=== PATIENT | male | born 1960 | race Caucasian/White ===

== ENCOUNTER → 2016-10-14 | Outpatient (CLI) | payer OTHER ==
[~2016-10-14] MED LIST: ATOR10TA82 PO; BUSP-8 PO; BUSP15TA70 PO; LORA-741 PO; OXYC-57 PO; OXYC1TAB3 PO; PRLSR20 PO; RXC5 PO; SERT-234 PO; SERT1TAB71 PO
[2016-10-14 13:23] LABS: ESTIMATED AVERAGE GLUCOSE 120 mg/dl; HA1C FLAG Normal (Normal)
[2016-10-14 18:04] LABS: CALCIUM 9.7 mg/dl (8.5-10.1)
[2016-10-14 18:07] LABS: ALT/SGPT 45 U/L (12-78); BLOOD UREA NITROGEN 17 mg/dl (7-18); BUN/CREATININE RATIO 18.8 (10-20); CARBON DIOXIDE 27 mmol/L (21-32); CHLORIDE 105 mmol/L (98-107); CHOLESTEROL 304 mg/dl (0-200); CREATININE 0.88 mg/dl (0.60-1.40); GLUCOSE 113 mg/dl (70-99); POTASSIUM 4.6 mmol/L (3.5-5.1); SODIUM 140 mmol/L (136-145); TRIGLYCERIDES 175 mg/dl (0-150); VERY LOW DENSITY LIPOPROT CALC 35 mg/dl
[2016-10-14 18:10] LABS: ALB/GLOB RATIO 1.2 (0.9-2); ALKALINE PHOSPHATASE 94 U/L (45-117); AST/SGOT 26 U/L (15-37); HDL CHOLESTEROL 61 mg/dl; LDL CHOLESTEROL CALCULATED 208 mg/dl
== END | disposition home or self-care (01) ==
LOC: C.LABPVFM 11:07
PROVIDERS: ATTEND Neuromusculoskeletal Medicine & OMM
DX: Z00.00 Encounter for general adult medical examination without abnormal findings (principal)

== ENCOUNTER → 2016-10-31 | Outpatient (CLI) | payer OTHER ==
[2016-10-31 17:28] LABS: BASO % 0.4 %; BASO ABS # 0.03 K/uL (0-0.2); COMPLETE YES; EOS % 3.2 %; HEMATOCRIT 41.6 % (42-52); IG% 0.3 %; LYMPH % 23.5 %; LYMPH ABS # 1.71 K/uL (1.2-3.4); MEAN CORPUSCULAR HEMOGLOBIN 30.9 pg (25-34); MEAN CORPUSCULAR HGB CONC 33.9 g/dl (32-36); MEAN PLATELET VOLUME 9.2 fL (7.4-10.4); MONO % 13.6 %; PLATELET COUNT 259 K/uL (130-400); RED BLOOD COUNT 4.57 M/uL (4.7-6.1); WHITE BLOOD COUNT 7.29 K/uL (4.8-10.8)
[2016-10-31 17:55] LABS: BLOOD UREA NITROGEN 21 mg/dl (7-18); BUN/CREATININE RATIO 22.5 (10-20); CALCIUM 9.3 mg/dl (8.5-10.1); CARBON DIOXIDE 30 mmol/L (21-32); CHLORIDE 106 mmol/L (98-107); CREATININE 0.94 mg/dl (0.60-1.40); GLUCOSE 88 mg/dl (70-99); POTASSIUM 4.5 mmol/L (3.5-5.1); SODIUM 141 mmol/L (136-145)
== END | disposition home or self-care (01) ==
LOC: C.LABPVFM 14:26
PROVIDERS: ATTEND Nurse Practitioner
DX: R10.811 Right upper quadrant abdominal tenderness (principal); R10.13 Epigastric pain; K92.1 Melena

== ENCOUNTER → 2016-11-05 | Outpatient (CLI) | payer OTHER ==
--- NOTE | 2016-11-05 14:49 | DIAGNOSTIC IMAGING REPORT ---
Limited abdominal ultrasound ABDOMEN FOR HERNIA CLINICAL HISTORY: R/O UMBILICAL HERNIA hernia TECHNIQUE: Ultrasound COMPARISON STUDY: None FINDINGS: Findings consistent with a fat-containing umbilical hernia. This is partially reducible. There is no evidence of bowel containment. Maximum transverse dimension is approximately 1 cm. IMPRESSION: Fat-containing partially reducible periumbilical hernia. Electronically signed by: Wesley Samuels M.D. 11/05/2016 2:47 PM Dictated Date/Time: 11/05/2016 2:46 PM
== END | disposition home or self-care (01) ==
LOC: C.ULTR 14:10
PROVIDERS: ATTEND Nurse Practitioner
DX: K42.9 Umbilical hernia without obstruction or gangrene (principal); R19.7 Diarrhea, unspecified

== ENCOUNTER → 2016-11-27 | Outpatient (CLI) | payer OTHER ==
[~2016-11-27] MED LIST changes: -ATOR10TA82 PO; +ATOR10TA88 PO
--- NOTE | 2016-11-27 10:56 | DIAGNOSTIC IMAGING REPORT ---
[facility] ultrasound GALLBLADDER-ABD LIMITED CLINICAL HISTORY: R10.811 Abdominal tenderness, RUQ (right upper quadrant)R14.0 Bbl pain. Nausea. TECHNIQUE: Ultrasound COMPARISON STUDY: None FINDINGS: Normal gallbladder. Common bile duct 5 mm. Fatty infiltration of liver. Pancreas and right kidney are unremarkable. IMPRESSION: Fatty infiltration of liver. Otherwise negative study. Electronically signed by: Wesley Samuels M.D. 11/27/2016 10:54 AM Dictated Date/Time: 11/27/2016 10:53 AM
--- NOTE | 2016-11-27 10:59 | DIAGNOSTIC IMAGING REPORT ---
CHEST 2 VIEWS ROUTINE CLINICAL HISTORY: K42.9 Umbilical hernia PRE-OP [id number] preoperative evaluation COMPARISON STUDY: 07/11/2014 FINDINGS: The bones soft tissues and hemidiaphragms are normal. The cardiomediastinal silhouette is normal. The lungs are clear. The pulmonary vasculature is normal. IMPRESSION: Negative chest. Electronically signed by: Wesley Samuels M.D. 11/27/2016 10:58 AM Dictated Date/Time: 11/27/2016 10:57 AM
== END | disposition home or self-care (01) ==
LOC: C.ULTR 10:26
PROVIDERS: ATTEND Surgery
DX: R10.811 Right upper quadrant abdominal tenderness (principal); R14.0 Abdominal distension (gaseous); K76.0 Fatty (change of) liver, not elsewhere classified

== ENCOUNTER 2016-12-12 04:59 | Day surgery (SDC) | payer OTHER ==
[2016-12-10 15:38] VITALS: BMI 32.0
[~2016-12-12] VITALS: Ht 170.2 cm; Wt 93.0 kg
[~2016-12-12 04:59] MED LIST changes: -BUSP-8 PO; -LORA-741 PO; -OXYC-57 PO; -OXYC1TAB3 PO; -RXC5 PO; -SERT-234 PO
[2016-12-12 05:40] VITALS: BP 140/80; PULSE 61; TEMP 37.1; O2SAT 96; Ht 170.2 cm; Wt 93.0 kg
[2016-12-12] MEDS ORDERED: LACTATED RINGER'S 1000ML 1,000 ML IV SCH ×2 (06:00→07:46)
--- NOTE | 2016-12-12 06:31 | History & Physical Bridge Note ---
H&P Re-Evaluation Bridge Note: I have examined the patient, reviewed the History & Physical and in the interval since the performance of the History & Physical I have noted the following changes of clinical significance: No changes noted at bedside. again told them ultrasound gallbladder fine, hernia marked
[2016-12-12] MEDS ORDERED: FENTANYL CITRATE INJ 50 MCG/1 ML 2 ML VIAL ONE ×2 (06:32→07:54)
[2016-12-12] MEDS ORDERED: ONDANSETRON INJ 2 MG/ML 2 ML VIAL ONE (06:32)
[2016-12-12] MEDS ORDERED: PROPOFOL IV EMULSION 10 MG/ML 20 ML VIAL IV ONE (06:32)
[2016-12-12] MEDS ORDERED: MIDAZOLAM HCL 1 MG/ML 2ML VIAL ONE (06:32)
[2016-12-12] MEDS ORDERED: DEXAMETHASONE SOD INJ 4 MG/ML VIAL ONE (06:32)
[2016-12-12] MEDS ORDERED: LIDOCAINE HCL 2% 2 ML VIAL (20MG/ML) ONE (06:32)
[2016-12-12] MEDS ORDERED: BUPIVACAINE 0.5 % 5 MG/1 ML MPF 30ML VIAL ONE (06:38)
[2016-12-12] MEDS ORDERED: BACITRACIN 50000 UNIT VIAL ONE (06:38)
[2016-12-12] MEDS ORDERED: CEFAZOLIN SOD 1 GM VIAL ONE (07:15)
[2016-12-12] MEDS ORDERED: OXYC-57 PO (07:48)
--- NOTE | 2016-12-12 07:51 | Discharge Instructions ---
Discharge Instructions Date of Service Dec 12, 2016. Visit Reason for Visit: Incarcerated Umbilical Hernia Discharge Discharge Diagnosis / Problem: repair of hernia Discharge Goals Goal(s): Decrease discomfort Activity Recommendations Activity Limitations: as noted below Lifting Limitations: no more than 10 pounds Shower/Bathe: tomorrow (shower over dressing-it is waterproof, remove dressing on Friday) Anesthesia . Post Anesthesia Instructions: If you have had General Anesthesia or IV Sedation: * Do not drive today. * Resume driving when surgeon permits. * Do not make important decisions or sign legal documents today. * Call surgeon for: 1. Temperature elevations greater than 101 degrees F. 2. Uncontrollable pain. 3. Excessive bleeding. 4. Persistent nausea and vomiting. 5. Medication intolerance (nausea, vomiting or rash). * For nausea and vomiting use only clear liquids such as: tea, soda, bouillon until nausea subsides, then gradually increase diet as tolerated. * If you have any concerns or questions, call your surgeon's office. If physician is unavailable and it is an emergency, call 911 or go to the nearest emergency room. . Instructions / Follow-Up Instructions / Follow-Up Dr. Rowe's office in 1 week as planned or call [phone] if you do not have an appt or for any questions Diet Recommendations Recommended Home Diet: no limitations Procedures Procedures Performed: Open Incarcerated Umbilical Hernia Repair With Prolite Mesh Pending Studies Studies pending at discharge: no Medical Emergencies . Who to Call and When: Medical Emergencies: If at any time you feel your situation is an emergency, please call 911 immediately. . Non-Emergent Contact Non-Emergency issues call your: Surgeon Call Non-Emergent contact if: you have a fever, temperature is above 101.5, your pain is not controlled, wound has increased redness, wound has increased pain, you have any medication questions . . "Provider Documentation" section prepared by Saeed Pierre. . [place] Drug Monitoring Program Search Results: no issues identified
--- NOTE | 2016-12-12 07:54 | [facility] Operative Report ---
Operative Report Operative Date Dec 12, 2016. Pre-Operative Diagnosis incarcerated umbilical hernia Post-Operative Diagnosis incarcerated umbilical hernia defect rashida 1.3 cm Procedure(s) Performed Open Incarcerated Umbilical Hernia Repair with marlex mesh onlay, excision inc omentum Mesh Surgeon Dr. Jem Rowe Academic Associate Surgeon(s) Saeed Pierre PA-C Estimated Blood Loss 2ml Findings inc omentum in1.3 cm defect Specimens A. Hernia Sac Anesthesia .5% marcaine local and lma anasthesia Disposition Recovery Room / PACU Description of Procedure sterile procedure iodine ,5% mar local and lma linear incision left of umbilical area rashida 2 inches long. hernia sac freed from umbilical skin with scissors and resected inc omentum that protruded through opening of rashida 1.3 cm ( lof protrusion rashida 3 cm) primary interrupted repair of defect with 0 pbd x4 and onlay marlex mesh rashida 3 -4 cm diameter to fascia with 0 prolene suture, 2- 0 vicryl int and dina skin edge, cotton to umbilical depth dressing applied spec inc fat ebl 2cc I attest to the content of the Intraoperative Record and any orders documented therein. Any exceptions are noted below.
[2016-12-12] MEDS ORDERED: MoRPHine SULFATE 2 MG/ML CARP IV PRN (08:00)
[2016-12-12] MEDS ORDERED: ONDANSETRON INJ 2 MG/ML 2 ML VIAL IV PRN ×2 (08:00→08:15)
[2016-12-12] MEDS ORDERED: KETOROLAC TROMETHAMINE 30 MG/ML VIAL IV. PRN (08:00)
[2016-12-12] MEDS ORDERED: OXYCODONE/ACETAMINOPHEN 5-325 TAB PO PRN (08:00)
[2016-12-12] MEDS ORDERED: HYDROmorphone INJ 2 MG/ML SYR/VIAL ONE (08:09)
[2016-12-12] MEDS ORDERED: EpHEDrine SULFATE INJ 50 MG/ML AMP IV PRN (08:15)
[2016-12-12] MEDS ORDERED: MEPERIDINE HCL 25 MG/ML CARP IV PRN (08:15)
[2016-12-12] MEDS ORDERED: LABETALOL HCL IV 5 MG/ML 20ML IV PRN (08:15)
[2016-12-12] MEDS ORDERED: PHENYLEPHRINE 100MCG/ML 5ML SYR IV PRN (08:15)
[2016-12-12] MEDS ORDERED: HYDROmorphone INJ 2 MG/ML SYR/VIAL IV PRN (08:15)
[2016-12-12] MEDS ORDERED: ATROPINE SULFATE 0.1 MG/ML 5ML SYR IV PRN (08:15)
[2016-12-12] MEDS ORDERED: FLUMAZENIL 0.1 MG/1 ML 10 ML VIAL IV PRN (08:15)
[2016-12-12] MEDS ORDERED: FENTANYL CITRATE INJ 50 MCG/1 ML 2 ML VIAL IV PRN (08:15)
[2016-12-12] MEDS ORDERED: NALOXONE HCL 0.4 MG/1 ML VIAL/CARP IV PRN (08:15)
[2016-12-12] MEDS ORDERED: KETOROLAC TROMETHAMINE 30 MG/ML VIAL ONE (08:20)
--- NOTE | 2016-12-12 08:33 | Anesthesiology Progress Note ---
Anesthesia Post Op Note Date & Time Dec 12, 2016 at 08:33 Vital Signs Pain Intensity: 4 Vital Signs Past 12 Hours Date Time Temp Pulse Resp B/P (MAP) Pulse Ox O2 Delivery O2 Flow Rate FiO2 12/12/16 08:30 36.5 72 20 148/82 98 Room Air 12/12/16 08:15 70 20 138/87 98 Room Air 12/12/16 08:05 68 16 135/87 95 Room Air 12/12/16 07:55 58 16 135/80 100 Mask 10 12/12/16 07:46 36.9 64 16 129/65 100 Mask 10 12/12/16 05:40 37.1 61 18 140/80 (100) 96 Room Air Notes Mental Status: alert / awake / arousable, participated in evaluation Pt Amnestic to Procedure: Yes Nausea / Vomiting: adequately controlled Pain: adequately controlled Airway Patency, RR, SpO2: stable & adequate BP & HR: stable & adequate Hydration State: stable & adequate Anesthetic Complications: no major complications apparent
[2016-12-12 08:55] VITALS: BP 146/91; PULSE 62; TEMP 36.7; O2SAT 94
[2016-12-12 09:25] VITALS: BP 151/89; PULSE 69; O2SAT 98
[2016-12-12 09:45] VITALS: BP 163/87; PULSE 71; TEMP 36.6; O2SAT 93
== END 2016-12-12 09:55 | disposition home or self-care (01) ==
LOC: C.ACU 04:59
PROVIDERS: ATTEND Surgery
DX: K42.0 Umbilical hernia with obstruction, without gangrene (principal); I87.2 Venous insufficiency (chronic) (peripheral); Z85.72 Personal history of non-Hodgkin lymphomas; Z87.891 Personal history of nicotine dependence; Z82.49 Family history of ischemic heart disease and other diseases of the circulatory system; Z80.6 Family history of leukemia

== ENCOUNTER → 2017-02-13 | Outpatient (CLI) | payer OTHER ==
[~2017-02-13] VITALS: Ht 172.7 cm; Wt 93.7 kg
[~2017-02-13] MED LIST changes: +OXYC-57 PO
[2017-02-13 09:57] VITALS: BP 137/80; PULSE 71; Ht 172.7 cm; Wt 93.7 kg
== END | disposition home or self-care (01) ==
LOC: C.NEUR 09:22
PROVIDERS: ATTEND Internal Medicine Pulmonary Disease
DX: G47.33 Obstructive sleep apnea (adult) (pediatric) (principal); G25.81 Restless legs syndrome; R10.13 Epigastric pain; F41.9 Anxiety disorder, unspecified; Z85.72 Personal history of non-Hodgkin lymphomas; I83.10 Varicose veins of unspecified lower extremity with inflammation; Z87.891 Personal history of nicotine dependence; Z79.899 Other long term (current) drug therapy

== ENCOUNTER → 2017-03-25 | Outpatient (CLI) | payer OTHER ==
[~2017-03-25] MED LIST changes: +OPTIRAY 320 IV PRN
--- NOTE | 2017-03-25 16:21 | DIAGNOSTIC IMAGING REPORT ---
CT SCAN OF THE ABDOMEN AND PELVIS WITH IV CONTRAST CLINICAL HISTORY: Hepatic steatosis. Epigastric abdominal pain. Diarrhea and bloating. Elevated CPK. COMPARISON STUDY: Abdominal ultrasound dated 11/27/2016. Abdominal CT dated 05/31/2014. TECHNIQUE: Following the IV administration of 92 cc of Optiray 320, CT scan of the abdomen and pelvis is performed from the lung bases to the proximal femora. Images are reviewed in the axial, sagittal, and coronal planes. IV contrast was administered without complication. A dose lowering technique was utilized adhering to the principles of ALARA. CT DOSE: 721.31 mGy.cm FINDINGS: Lung bases: The heart is normal in size and without pericardial effusion. The lung bases are clear. There is a tiny hiatal hernia. Liver: The contrast-enhanced liver is enlarged, measuring 19 cm in length. The liver demonstrates diffusely diminished attenuation consistent with hepatic steatosis. Fatty sparing is seen adjacent to gallbladder fossa. There is no intrahepatic biliary ductal dilatation. The hepatic veins and portal veins are patent. Gallbladder: Unremarkable. Spleen: Normal in size and attenuation. Pancreas: Unremarkable. Adrenal glands: Unremarkable. Kidneys: The contrast enhanced kidneys are normal in size and without hydronephrosis. The kidneys enhance symmetrically. Abdominal vasculature: The abdominal aorta is normal in course and caliber. Bowel: The small bowel and colon are normal in course and caliber. The appendix is well-visualized and normal. Peritoneum: There is no intraperitoneal free air or abdominal ascites. There is a small fat-containing umbilical hernia. Lymphadenopathy: Mildly enlarged mesenteric lymph nodes measure up to 13 mm in short axis. These are similar appearance to the 2014 examination. There is no upper abdominal, retroperitoneal, pelvic sidewall, or inguinal lymphadenopathy. Pelvic viscera: The bladder, prostate, and seminal vesicles are normal as visualized. Skeletal structures: No lytic or blastic lesions are seen. There are postoperative changes from L3 -L5 spinal fusion. IMPRESSION: 1. There are no acute infectious or inflammatory findings in the abdomen or pelvis. 2. Hepatomegaly and hepatic steatosis. 3. Mildly enlarged mesenteric lymph nodes are of indeterminant significance and similar appearance to the 2014 examination. 4. Additional findings as above. Electronically signed by: Elvin Alejandro M.D. 03/25/2017 4:19 PM Dictated Date/Time: 03/25/2017 4:05 PM
== END ==
LOC: C.CTS 13:24
PROVIDERS: ATTEND Nurse Practitioner
DX: K76.0 Fatty (change of) liver, not elsewhere classified (principal); R11.0 Nausea; R14.0 Abdominal distension (gaseous); R19.7 Diarrhea, unspecified; R10.13 Epigastric pain; R74.8 Abnormal levels of other serum enzymes; R16.0 Hepatomegaly, not elsewhere classified

== ENCOUNTER → 2017-05-08 | Outpatient (CLI) | payer OTHER ==
[~2017-05-08] VITALS: Ht 172.7 cm; Wt 97.8 kg
[~2017-05-08] MED LIST changes: +ATOR10TA82 PO; -ATOR10TA88 PO; -OPTIRAY 320 IV PRN
[2017-05-08 14:58] VITALS: BP 133/83; PULSE 84; Ht 172.7 cm; Wt 97.8 kg
== END | disposition home or self-care (01) ==
LOC: C.NEUR 14:38
PROVIDERS: ATTEND Internal Medicine Pulmonary Disease
DX: G47.33 Obstructive sleep apnea (adult) (pediatric) (principal)

== ENCOUNTER → 2017-06-25 | Outpatient (CLI) | payer OTHER ==
[~2017-06-25] MED LIST changes: -OXYC-57 PO
[2017-06-25 13:38] LABS: BLOOD UREA NITROGEN 21 mg/dl (7-18); CALCIUM 9.5 mg/dl (8.5-10.1); CARBON DIOXIDE 27 mmol/L (21-32); CHOLESTEROL 184 mg/dl (0-200); CREATININE 0.86 mg/dl (0.60-1.40); GLUCOSE 121 mg/dl (70-99); POTASSIUM 4.5 mmol/L (3.5-5.1); SODIUM 137 mmol/L (136-145)
[2017-06-25 13:43] LABS: HEMOGLOBIN A1C 6.1 % (4.5-5.6)
[2017-06-25 13:46] LABS: LDL CHOLESTEROL CALCULATED 109 mg/dl
== END | disposition home or self-care (01) ==
LOC: C.LABPVFM 08:40
PROVIDERS: ATTEND Nurse Practitioner
DX: R73.01 Impaired fasting glucose (principal); E78.5 Hyperlipidemia, unspecified; K76.0 Fatty (change of) liver, not elsewhere classified; Z85.72 Personal history of non-Hodgkin lymphomas

== ENCOUNTER → 2018-01-02 | Outpatient (CLI) | payer OTHER ==
--- NOTE | 2018-01-02 11:43 | DIAGNOSTIC IMAGING REPORT ---
C-SPINE ROUTINE 4 OR 5 VIEWS CLINICAL HISTORY: Neck pain COMPARISON STUDY: 09/18/2012 FINDINGS: The prevertebral soft tissues are normal. No fractures or subluxations are visualized. There is slight progression in degenerative changes at the C5-6 and C6-7 levels. IMPRESSION: 1. No acute fractures 2. Slight progression in the degenerative changes most pronounced the C5-6 and C6-7 levels. Electronically signed by: Tommie Foster M.D. 01/02/2018 11:42 AM Dictated Date/Time: 01/02/2018 11:36 AM
[2018-01-02 13:12] LABS: BLOOD UREA NITROGEN 19 mg/dl (7-18); CALCIUM 9.1 mg/dl (8.5-10.1); CARBON DIOXIDE 26 mmol/L (21-32); CREATININE 0.89 mg/dl (0.60-1.40); GLUCOSE 105 mg/dl (70-99); POTASSIUM 4.1 mmol/L (3.5-5.1); SODIUM 136 mmol/L (136-145)
== END | disposition home or self-care (01) ==
LOC: C.LABPVFM 11:04
PROVIDERS: ATTEND Nurse Practitioner
DX: M54.2 Cervicalgia (principal); R73.01 Impaired fasting glucose; I10 Essential (primary) hypertension

== ENCOUNTER 2018-08-06 08:36 | Inpatient (IN) ==
--- NOTE | 2018-07-21 10:06 | Anesthesiology Consultation ---
Date of Service July 21, 2018 Assessment & Plan (1) Encounter for pre-operative examination: Chart Review Chart Review: Acceptable Risk for Surgery and Patient seen in Pre Admission Testing Teaching & Discussion Instructed NPO after midnight before surgery, except medications with 15 cc of water. Medication instructions provided according to the PAT guidelines. History Surgery Operation Date: 08/06/18 10:35 Proposed Procedures p C3-C4, C5-C6 Anterior Cervical Discectomy and Fusion with Iliac Crest Bone Graft - Kulwant Noland DO Height/Weight Height: 5 ft 8 in Weight: 99.8 kg Allergies Allergy/AdvReac Type Severity Reaction Status Date / Time No Known Allergies Allergy Unknown Verified 07/14/18 12:24 Medications Home Medications Medication Instructions Recorded Confirmed Last Taken atorvastatin 20 mg PO QAM 07/14/18 07/14/18 Unknown dicyclomine 20 mg PO QID PRN 07/14/18 07/14/18 Unknown lisinopril 10 mg PO QAM 07/14/18 07/14/18 Unknown lorazepam 0.5 mg PO BID PRN 07/14/18 07/14/18 Unknown ranitidine HCl 150 mg PO DAILY PRN 07/14/18 07/14/18 Unknown sertraline 50 mg PO QAM 07/14/18 07/14/18 Unknown Past Medical History Medical History Anxiety Cancer NON [facility] LYMPHOMA DX'D 1997, S/P CHEMO AND XRT. Cervical radiculopathy GERD (gastroesophageal reflux disease) H/O Clostridium difficile infection treated for summer 2017 Hyperlipidemia Hypertension Osteoarthritis Sleep apnea CPAP HS Past Surgical History Surgical History Fusion of spine LUMBAR History of herniorrhaphy History of surgery R LEG-REPAIR LACERATION Past Anesthesia History No Hx of Anesthesia Complications and No Family Hx of Anesthesia Complications 2014 Lumbar dec/fusion [facility]: MAC 3, ETT 7.5. "Prior to extubation pt presents with epistaxis. 4x4 to L nares." History of PONV No Motion Sickness Screening History of Motion Sickness: No STOP BANG Total 6 Social History Smoking Status: Former smoker Do You Dip or Chew Tobacco: No Smoking End Date: QUIT 30 YRS AGO Hx Alcohol Use: Yes Alcohol type: beer, wine and hard liquor alcohol intake frequency: holidays/special occasions only Hx Substance Use: No substance use type: does not use Exercise / Class Metabolic Activity II 4-5 Yardwork/Stairs/Walk up hill (no CP or SOB with stairs) Review of Systems Pt denies any recent chest pain, shortness of breath, palpitations, fever or URI. +dry cough, mild Physical Exam Vital Signs BP: 143/78 (pt follows with PCP for HTN) P: 84bpm SPO2: 96% RA T: 98.1 F R: 16 ENMT Mouth: + dental restorations (few crowns); no chipped teeth and no loose teeth Thyromental Distance: < 3.5 Finger Breadths (3) Mallampati Class: III Neck normal visual inspection and + limited neck extension (moderately limited) Testing Electrocardiogram Date: 07/21/18 Findings: + NSR @ (74) Chest X-Ray Date: 07/21/18 Findings: + NAD Stress Test Date: 07/20/14 Normal pharmacologic stress echocardiogram. No echocardiographic or ECG evidence of myocardial ischemia having achieved heart rate adequate for diagnostic purposes. The stress ECG response was normal The left ventricular ejection fraction increases normally with stress. The left ventricular end- systolic cavity size reduces post-stress (normal response). The left ventricular wall motion with stress is normal. Laboratory Results 07/21/18 10:18 07/21/18 10:18 Blood Type A Positive 07/21/18 10:18 Antibody Screen NEGATIVE 07/21/18 10:18 PT 10.2 Seconds (9.0-12.0) 07/21/18 10:18 INR 1.0 (0.9-1.1) 07/21/18 10:18 APTT 23.7 Seconds (21.0-31.0) 07/21/18 10:18
--- NOTE | 2018-07-21 10:14 | PAT Medication Instructions ---
Medication Instructions Date of Service July 21, 2018 Home Medications atorvastatin 20 mg PO QAM dicyclomine 20 mg PO QID PRN lisinopril 10 mg PO QAM lorazepam 0.5 mg PO BID PRN ranitidine HCl 150 mg PO DAILY PRN sertraline 50 mg PO QAM DO NOT take the morning of surgery dicyclomine 20 mg PO QID PRN lisinopril 10 mg PO QAM Take morning of surgery With a small sip of water, OTHERWISE NOTHING TO EAT OR DRINK AFTER MIDNIGHT: atorvastatin 20 mg PO QAM lorazepam 0.5 mg PO BID PRN (if needed) ranitidine HCl 150 mg PO DAILY PRN (if needed) sertraline 50 mg PO QAM Take evening before surgery dicyclomine 20 mg PO QID PRN (if needed) lorazepam 0.5 mg PO BID PRN (if needed) ranitidine HCl 150 mg PO DAILY PRN (if needed) Other Notes If you have any questions please call us at [phone] or [phone] or [phone] or [phone]
--- NOTE | 2018-07-21 10:36 | XRay Report ---
XR chest Pre-admission PA/Lat CLINICAL HISTORY: Preoperative chest COMPARISON STUDY: July 11, 2014 FINDINGS: The cardiac and mediastinal contours are normal. There is no evidence of focal pulmonary co nsolidation. There is no evidence of failure. No pleural effusions are visualized.[ IMPRESSION: No active disease in the chest. Electronically signed by: Tommie Foster M.D. 07/21/2018 10:34 AM
[2018-07-21 10:56] LABS: Basophils # (auto) 0.02 K/uL (0-0.2); Basophils % (auto) 0.3 %; Eosinophils % (auto) 1.5 %; Hematocrit (blood only) 44.3 % (42-52); Hemoglobin 15.3 g/dL (14.0-18.0); Immature Granulocytes # (auto) 0.01 K/uL (0.00-0.02); Immature Granulocytes % (auto) 0.1 %; Lymphocytes # (auto) 1.73 K/uL (1.2-3.4); Lymphocytes % (auto) 25.6 %; Mean Corpuscular Hgb Conc 34.5 g/dL (32-36); Mean Corpuscular Volume 88.1 fL (80-100); Mean Platelet Volume 9.3 fL (7.4-10.4); Monocytes # (auto) 0.57 K/uL (0.11-0.59); Monocytes % (auto) 8.4 %; Neutrophils # (auto) 4.32 K/uL (1.4-6.5); Neutrophils % (auto) 64.1 %; Platelet Count 217 K/uL (130-400); RDW Coefficient of Variation 13.8 % (11.5-14.5); RDW Standard Deviation 44.1 fL (36.4-46.3); Red Blood Count 5.03 M/uL (4.7-6.1); White Blood Count 6.75 K/uL (4.8-10.8)
[2018-07-21 11:23] LABS: Calcium 8.9 mg/dl (8.5-10.1); Creatinine Clr Calc Pharmacy 94.5 ml/min; Est GFR (African American) 97.1; Est GFR (Non-African American) 83.8; Potassium 4.2 mmol/L (3.5-5.1)
[2018-07-21 11:34] LABS: Partial Thromboplastin Ratio 0.9; Partial Thromboplastin Time 23.7 Seconds (21.0-31.0); Prothrombin Time 10.2 Seconds (9.0-12.0)
--- NOTE | 2018-08-04 15:18 | History and Physical Report ---
DATE OF ADMISSION: 08/06/2018 CHIEF COMPLAINT: Neck pain, arm pain associated weakness to the upper extremities, paresthesias. HISTORY OF PRESENT ILLNESS: Wesley is a pleasant gentleman in his usual state of health. He presented to me a few weeks ago certainly with a cervical radiculopathy with true weakness and a progressive neurological deficit. He is set up for surgery because of his advancing neurological issues. Duration of the symptoms approximately 9 months. PAST MEDICAL HISTORY: Positive for high cholesterol, hypertension, carcinoma, stomach ulcers, usual childhood diseases. PAST SURGICAL HISTORY: Knee surgery, lumbar spine surgery, right leg surgery. ALLERGIES: Negative. FAMILY HISTORY: A brother with leukemia and another brother with a brain tumor. SOCIAL HISTORY: He is . Three children. No alcohol, no tobacco. Moderately active. MEDICATIONS: Include Lipitor, lisinopril, diclofenac, gabapentin. OBJECTIVE: GENERAL: He is 5 feet 8 inches. He is 225 pounds, moderate distress. VITAL SIGNS: Blood pressure 140/80, pulse 80, respirations 16. Afebrile. HEENT: Essentially normal. CARDIAC: Normal S1, S2, no S3. LUNGS: Clear to auscultation. No rales, rhonchi, wheezing. ABDOMEN: Soft, nontender. MUSCULOSKELETAL: He has pain, weakness of deltoid, triceps function and biceps function. He has a positive Lhermitte sign, positive Spurling maneuver and profound decreased range of motion. IMPRESSION: Includes that of cord compression, cervical spine. PLAN: Includes an anterior cervical discectomy and fusion C3-C4 and C5-C6 cervical spine with iliac crest bone graft.
[~2018-08-06 08:36] MED LIST changes: -ATOR10TA82 PO; -BUSP15TA70 PO; +CEFAZOLIN 2000MG 2,000 MG/15 ML SYR IV SCH; +LR 15ML/HR IV SCH; -PRLSR20 PO; -SERT1TAB71 PO; +SODIUM CHLORIDE 0.9% 1,000 ML IV SCH
[2018-08-06] MEDS ORDERED: fentaNYL citrate 100 MCG/2 ML VIAL ONE (09:26)
[2018-08-06] MEDS ORDERED: MIDAZOLAM HCL 1 MG/ML 2ML VIAL ONE (09:26)
[2018-08-06] MEDS ORDERED: PROMETHAZINE HCL 12.5 MG in SODIUM CHLORIDE 0.9% 50 ML IV PRN (10:45)
[2018-08-06] MEDS ORDERED: ATROPINE SULFATE 0.1 MG/ML 10ML SYR IV PRN (10:45)
[2018-08-06] MEDS ORDERED: ONDANSETRON INJ 2 MG/ML 2 ML VIAL IV PRN ×2 (10:45→15:30)
[2018-08-06] MEDS ORDERED: LABETALOL HCL IV 5 MG/ML 20ML IV PRN (10:45)
[2018-08-06] MEDS ORDERED: GELATIN SPONGE SZ 100 ONE (10:46)
[2018-08-06] MEDS ORDERED: BUPIVACAINE/EPINEPHRINE 0.5% MPF 1:200,000 30 ML VIAL ONE (10:46)
[2018-08-06] MEDS ORDERED: THROMBIN FOR SOLN 20000 UNIT KIT ONE (10:47)
[2018-08-06] MEDS ORDERED: BACITRACIN INJ 50,000 UNIT VIAL ONE (10:47)
--- NOTE | 2018-08-06 10:55 | History & Physical Bridge Note ---
Date of Service August 06, 2018 History & Physical Bridge Note I have examined the patient, reviewed the History & Physical and in the interval since the performance of the History & Physical I have noted the following changes of clinical significance: no changes noted
[2018-08-06] MEDS ORDERED: DEXAMETHASONE SOD INJ 4 MG/ML VIAL ONE (11:47)
[2018-08-06] MEDS ORDERED: PHENYLEPHRINE HCL 10 MG/ML VIAL ONE (11:47)
[2018-08-06] MEDS ORDERED: NEOSTIGMINE METHYLSULFATE 5 MG/5 ML SYR ONE (11:47)
[2018-08-06] MEDS ORDERED: HYDROmorphone INJ 2 MG/ML SYR/VIAL ONE (11:47)
[2018-08-06] MEDS ORDERED: LARYING-O-JET KIT (LTA) ONE (11:47)
[2018-08-06] MEDS ORDERED: ROCURONIUM BROMIDE 10 MG/ML 5 ML VIAL ONE (11:47)
[2018-08-06] MEDS ORDERED: LIDOCAINE HCL 2% 2 ML VIAL/AMP(20MG/ML) INFIL ONE (11:47)
[2018-08-06] MEDS ORDERED: GLYCOPYRROLATE 0.2 MG/ML VIAL ONE (11:47)
[2018-08-06] MEDS ORDERED: PROPOFOL IV EMULSION 10 MG/ML 20 ML VIAL IV ONE (11:47)
[2018-08-06] MEDS ORDERED: ONDANSETRON INJ 2 MG/ML 2 ML VIAL ONE (11:47)
[2018-08-06] MEDS ORDERED: ePHEDrine sulfate 50 MG/ML SYR ONE (12:11)
--- NOTE | 2018-08-06 13:10 | Post Operative Brief Note ---
Immediate Post Op Note v1 Date of Surgery August 06, 2018 Pre & Post Diagnosis Operation Date: 08/06/18 10:45 Pre-Op Diagnosis: Cord Compression Post-Op Diagnosis: Cord Compression Procedure Operation Date: 08/06/18 10:45 Actual Procedures p C3-C4, C5-C6 Anterior Cervical Discectomy and Fusion with Iliac Crest Bone Graft(Not Applicable) - Kulwant Noland DO Surgeon Kulwant Noland DO Cartographic Aide kelly Estimated Blood Loss 25 Findings Consistent with Post-Op Diagnosis Drains Daniela Drain
[2018-08-06] MEDS ORDERED: HYDROmorphone INJ 1 MG/ML SYRINGE ONE ×2 (13:31→14:39)
[2018-08-06] MEDS: HYDROmorphone INJ 1 MG/ML SYRINGE IV PRN ×12 (13:33→14:56)
--- NOTE | 2018-08-06 13:38 | Fluoroscopy Report ---
FL spine 1V any level CLINICAL HISTORY: 58 years-old Male presenting with ACDF C3-C4 C5-C6. TECHNIQUE: 2 fluoroscopic image(s) recorded as part of an intraoperative procedure. COMPARISON: 07/08/2018. FINDINGS/IMPRESSION: There has been interval anterior cervical discectomy and fusion of C3-4 and C5-6. Normal alignment. S upporting tubes project over the anterior soft tissues of the neck. Please see surgical report for further details. Fluoroscopy dosage (mGy): 0.91. Fluoroscopy time: 4.8 seconds. Number or time of fluoroscopic spot images: 1.6 seconds. Electronically signed by: Orion Oliveira M.D. 08/06/2018 1:37 PM
--- NOTE | 2018-08-06 14:12 | Operative Report ---
DATE OF OPERATION: 08/06/2018 PREOPERATIVE DIAGNOSIS: Spinal cord compression C3-C4, C5-C6 cervical spine. POSTOPERATIVE DIAGNOSIS: Spinal cord compression C3-C4, C5-C6 cervical spine. PROCEDURE: Anterior cervical discectomy and fusion, iliac crest bone grafting C3-C4 and C5-C6 cervical spine. SURGEON: Kulwant Noland DO [employer] T[employer]: Darrius Rivas PA-C. COMPLICATIONS: Zero. BLOOD LOSS: 25 mL. IMPLANTS USED: Coalition device with structural autograft from left iliac crest. DESCRIPTION OF PROCEDURE: The patient was taken to the operating room and general intubated anesthetic provided to the patient, kept supine, prepped and draped sterile. We made a skin incision on the sacral area, down roughly in the C4-C5 region. We marked the C3-C4 interspace. We also marked the C5-C6 interspace. We did complete discectomies at these levels. We got back to and through the posterior longitudinal ligament. I took off disc material. I did foraminotomies. I took off ligamentum flavum. We took off some osteophyte formation at both levels, the discs were completely evacuated of pressure. We irrigated. We then took structural autograft from the left iliac crest, packed this in the coalition device. These were placed in the vacated diskectomy sites at C5-C6 and C3-C4 cervical spine. The fit was anatomic. These were locked down with cortical cancellous screws, 14 mm in length. They were locked in and tightened. We irrigated and closed over a Daniela drain the cervical spine and the iliac crest. Sterile dressings applied. The patient returned to PACU stable. There were no apparent complications. I attest to the content of the Intraoperative Record and any orders documented therein. Any exception s are noted below.
--- NOTE | 2018-08-06 15:01 | Anesthesiology Progress Note ---
Date of Service August 06, 2018 Anesthesia Post Procedure Vital Signs Vital Signs: Temp Pulse Pulse Resp BP BP Pulse Ox 08/06/18 14:56 100 H 27 H 143/85 H 96 08/06/18 14:55 36.5 C 102 H 95 H 18 143/85 H 98 08/06/18 14:51 88 21 157/93 H 96 08/06/18 14:50 86 16 96 08/06/18 14:46 90 15 153/90 H 95 08/06/18 14:45 98 H 21 97 08/06/18 14:42 83 21 98 08/06/18 14:41 81 18 146/92 H 98 08/06/18 14:40 92 H 18 98 08/06/18 14:36 99 H 15 156/93 H 97 08/06/18 14:35 99 H 17 97 08/06/18 14:31 82 16 165/85 H 100 08/06/18 14:30 82 20 98 08/06/18 14:27 96 H 22 96 08/06/18 14:26 90 12 165/85 H 98 08/06/18 14:25 82 20 96 08/06/18 14:21 91 H 21 161/89 H 96 08/06/18 14:20 80 21 93 08/06/18 14:16 78 19 151/89 H 98 08/06/18 14:15 80 18 93 08/06/18 14:11 79 16 160/95 H 99 08/06/18 14:10 86 15 100 08/06/18 14:06 76 17 169/90 H 95 08/06/18 14:05 78 17 94 08/06/18 14:01 72 13 154/89 H 98 08/06/18 14:00 84 13 96 08/06/18 13:56 79 14 167/101 H 98 08/06/18 13:55 90 19 98 08/06/18 13:51 81 17 168/96 H 97 08/06/18 13:50 79 14 99 08/06/18 13:46 91 H 22 168/93 H 99 08/06/18 13:45 93 H 13 100 08/06/18 13:41 80 19 174/96 H 100 08/06/18 13:40 85 16 99 08/06/18 13:36 83 20 173/97 H 97 08/06/18 13:35 85 25 H 100 08/06/18 13:31 83 14 167/96 H 99 08/06/18 13:30 86 15 100 08/06/18 13:26 85 11 L 168/93 H 100 08/06/18 13:25 91 H 18 189/108 H 100 08/06/18 13:24 94 H 19 197/105 H 99 08/06/18 13:21 96 H 31 H 174/105 H 99 08/06/18 13:20 102 H 25 H 99 08/06/18 13:19 102 H 23 172/96 H 97 08/06/18 13:18 36.2 C L 103 H 93 H 15 180/95 H 99 08/06/18 08:57 36.5 C 66 20 142/88 H 98 Pain Intensity Medial Neck: Pain Intensity: 7 Notes Mental Status: alert / awake / arousable Patient Amnestic to Procedure: Yes Nausea / Vomiting: adequately controlled Pain: adequately controlled Airway Patency, RR, SpO2: stable & adequate BP & HR: stable & adequate Hydration State: stable & adequate Anesthetic Complications: no major complications apparent
[2018-08-06] MEDS ORDERED: ACETAMINOPHEN 1,000 MG/100 ML VIAL IV PRN (15:30)
[2018-08-06] MEDS ORDERED: DICYCLOMINE HCL 20 MG TAB PO PRN (15:30)
[2018-08-06] MEDS ORDERED: LORazepam 0.5 MG/1 ML VIAL IV PRN (15:30)
[2018-08-06] MEDS ORDERED: DEXAMETHASONE SOD PHOSPHATE 8 MG in SYRINGE 0 ML IV PRN (15:30)
[2018-08-06] MEDS ORDERED: LORazepam 0.5 MG TAB PO PRN (15:30)
[2018-08-06] MEDS ORDERED: RACEPINEPHRINE 2.25% NEBU SOLN 0.5 ML VIAL INH PRN (15:30)
[2018-08-06] MEDS ORDERED: MAGNESIUM HYDROXIDE SUSP 30 ML UDC PO PRN (15:30)
[2018-08-06] MEDS ORDERED: HYDROmorphone INJ 0.5 MG/0.5 ML SYR IV PRN (15:30)
[2018-08-06] MEDS ORDERED: NALOXONE HCL 0.4 MG/1 ML VIAL/CARP IV PRN (15:30)
[2018-08-06] MEDS ORDERED: SODIUM CHLORIDE 0.9% 1000ML 1,000 ML IV SCH (15:30)
[2018-08-06] MEDS: OXYCODONE HCL IR 5 MG TAB (IMMEDIATE RELEASE) PO PRN ×2 (16:15→20:23)
[2018-08-06] MEDS: DEXAMETHASONE SOD PHOSPHATE 6 MG in SYRINGE 0 ML IV SCH (19:12)
[2018-08-06] MEDS: CEFAZOLIN 2000MG 2,000 MG/15 ML SYR IV SCH (19:12)
[2018-08-06] MEDS: DOCUSATE SODIUM 100 MG CAP PO SCH (21:30)
[2018-08-07] MEDS: OXYCODONE HCL IR 5 MG TAB (IMMEDIATE RELEASE) PO PRN ×3 (00:25→10:13)
[2018-08-07] MEDS: DEXAMETHASONE SOD PHOSPHATE 6 MG in SYRINGE 0 ML IV SCH ×2 (00:37→07:57)
[2018-08-07] MEDS: CEFAZOLIN 2000MG 2,000 MG/15 ML SYR IV SCH ×2 (02:22→10:24)
--- NOTE | 2018-08-07 07:25 | Anesthesiology Progress Note ---
Date of Service August 07, 2018 Anesthesia Post Procedure Vital Signs Vital Signs: Temp Pulse Pulse Resp BP BP Pulse Ox 08/07/18 06:15 36.5 C 75 16 136/78 94 08/07/18 04:00 36.9 C 81 16 133/74 92 08/07/18 03:28 78 15 91 08/07/18 02:14 36.7 C 78 16 130/74 92 08/07/18 00:20 36.7 C 76 16 135/73 95 08/06/18 23:22 80 16 90 08/06/18 22:29 81 16 150/77 H 94 08/06/18 20:29 78 16 165/95 H 95 08/06/18 19:50 78 16 94 08/06/18 19:20 89 18 161/89 H 95 08/06/18 17:20 80 16 155/81 H 96 08/06/18 16:20 79 16 138/75 95 08/06/18 16:07 77 18 96 08/06/18 15:50 90 16 148/84 H 96 08/06/18 15:20 36.7 C 89 16 154/78 H 94 08/06/18 15:11 90 28 H 146/86 H 97 08/06/18 15:10 97 H 23 94 08/06/18 15:06 81 17 144/86 H 94 08/06/18 15:05 85 12 96 08/06/18 15:01 92 H 29 H 148/83 H 95 08/06/18 15:00 81 31 H 97 08/06/18 14:56 100 H 27 H 143/85 H 96 08/06/18 14:55 36.5 C 102 H 95 H 18 143/85 H 98 08/06/18 14:51 88 21 157/93 H 96 08/06/18 14:50 86 16 96 08/06/18 14:46 90 15 153/90 H 95 08/06/18 14:45 98 H 21 97 08/06/18 14:42 83 21 98 08/06/18 14:41 81 18 146/92 H 98 08/06/18 14:40 92 H 18 98 08/06/18 14:36 99 H 15 156/93 H 97 08/06/18 14:35 99 H 17 97 08/06/18 14:31 82 16 165/85 H 100 08/06/18 14:30 82 20 98 08/06/18 14:27 96 H 22 96 08/06/18 14:26 90 12 165/85 H 98 08/06/18 14:25 82 20 96 08/06/18 14:21 91 H 21 161/89 H 96 08/06/18 14:20 80 21 93 08/06/18 14:16 78 19 151/89 H 98 08/06/18 14:15 80 18 93 08/06/18 14:11 79 16 160/95 H 99 08/06/18 14:10 86 15 100 08/06/18 14:06 76 17 169/90 H 95 08/06/18 14:05 78 17 94 08/06/18 14:01 72 13 154/89 H 98 08/06/18 14:00 84 13 96 08/06/18 13:56 79 14 167/101 H 98 08/06/18 13:55 90 19 98 08/06/18 13:51 81 17 168/96 H 97 08/06/18 13:50 79 14 99 08/06/18 13:46 91 H 22 168/93 H 99 08/06/18 13:45 93 H 13 100 08/06/18 13:41 80 19 174/96 H 100 08/06/18 13:40 85 16 99 08/06/18 13:36 83 20 173/97 H 97 08/06/18 13:35 85 25 H 100 08/06/18 13:31 83 14 167/96 H 99 08/06/18 13:30 86 15 100 08/06/18 13:26 85 11 L 168/93 H 100 08/06/18 13:25 91 H 18 189/108 H 100 08/06/18 13:24 94 H 19 197/105 H 99 08/06/18 13:21 96 H 31 H 174/105 H 99 08/06/18 13:20 102 H 25 H 99 08/06/18 13:19 102 H 23 172/96 H 97 08/06/18 13:18 36.2 C L 103 H 93 H 15 180/95 H 99 08/06/18 08:57 36.5 C 66 20 142/88 H 98 Pain Intensity Medial Neck: Pain Intensity: 7 Neck: Pain Intensity: 7 Notes Mental Status: alert / awake / arousable Patient Amnestic to Procedure: Yes Nausea / Vomiting: adequately controlled Pain: adequately controlled Airway Patency, RR, SpO2: stable & adequate BP & HR: stable & adequate Hydration State: stable & adequate Anesthetic Complications: no major complications apparent
--- NOTE | 2018-08-07 07:56 | Discharge Summary ---
SUBJECTIVE: He is alert, oriented this morning. No chest pain, shortness of breath. Extremities are improved. Headaches resolved. OBJECTIVE: Vital signs stable. ASSESSMENT: Status post reconstructive cervical spine surgery, multiple level anterior cervical discectomies and fusions with iliac crest bone graft. PLAN: We will discharge Wesley home later on this morning, I am anticipating around 12:00 noon today. He has a prescription on his chart. He has collar instructions. He has followup instructions and he should be appropriate for discharge. His pathway was uneventful.
[2018-08-07] MEDS: DOCUSATE SODIUM 100 MG CAP PO SCH (08:27)
[2018-08-07] MEDS ORDERED: LISINOPRIL 10 MG TAB PO SCH (09:00)
[2018-08-07] MEDS ORDERED: ATORVASTATIN 20 MG TAB PO SCH (09:00)
[2018-08-07] MEDS ORDERED: SERTRALINE HCL 50 MG TABLET PO SCH (09:00)
[2018-08-08] MEDS ORDERED: BISACODYL 5 MG TABEC PO PRN (13:21)
== END 2018-08-07 13:49 | disposition home or self-care (01) | DRG 30 ==
LOC: ASU 08:36 → 3E 13:22

== ENCOUNTER 2024-03-09 08:52 | Observation (INO) ==
--- NOTE | 2024-02-09 15:10 | PAT Medication Instructions ---
Medication Instructions Date of Service February 09, 2024 Home Medications Medication Instructions Recorded dicyclomine 20 mg tablet 20 mg PO TID PRN "stomach 01/28/22 problems" #30 tabs amlodipine 10 mg tablet 10 mg PO QAM #90 tabs 03/06/23 atorvastatin 20 mg tablet 20 mg PO QAM #90 tabs 04/08/23 apixaban 5 mg tablet (Eliquis) 5 mg PO BID #180 tabs 07/17/23 hydrocodone 5 mg-acetaminophen 325 1 tab PO TID PRN pain #60 tabs 07/28/23 mg tablet mirabegron 50 mg tablet,extended 50 mg PO HS #90 tabs 09/01/23 release 24 hr (Myrbetriq) gabapentin 600 mg tablet 600 mg PO TID #270 tabs 10/02/23 hydrochlorothiazide 25 mg tablet 25 mg PO QAM #90 tabs 12/26/23 baclofen 10 mg tablet 10 mg PO BID #60 tabs 12/29/23 sertraline 100 mg tablet 100 mg PO QAM #90 tabs 01/27/24 sertraline 50 mg tablet 50 mg PO HS #90 tabs 01/27/24 Medication List: ascorbic acid (vitamin C) 100 mg tablet (Vitamin C) 100 mg PO QAM cholecalciferol (vitamin D3) 100 mcg (4,000 unit) capsule 5,000 mcg PO QAM diclofenac sodium 1 % topical gel 2 g topical Q6H PRN Pain buspirone 10 mg tablet 10 mg PO QAM PRN Anxiety acetaminophen 650 mg tablet 650 mg PO Q6H PRN Pain lidocaine 5 % topical patch 1 patch topical UD PRN Pain dicyclomine 20 mg tablet 20 mg PO TID PRN "stomach problems" amlodipine 10 mg tablet 10 mg PO QAM atorvastatin 20 mg tablet 20 mg PO QAM doxazosin 8 mg tablet 8 mg PO HS apixaban 5 mg tablet (Eliquis) 5 mg PO BID hydrocodone 5 mg-acetaminophen 325 mg tablet 1 tab PO TID PRN pain mirabegron 50 mg tablet,extended release 24 hr (Myrbetriq) 50 mg PO HS gabapentin 600 mg tablet 600 mg PO TID hydrochlorothiazide 25 mg tablet 25 mg PO QAM baclofen 10 mg tablet 10 mg PO BID sertraline 100 mg tablet 100 mg PO QAM sertraline 50 mg tablet 50 mg PO HS MEDICATION INSTRUCTIONS: Continue as directed diclofenac sodium 1 % topical gel 2 g topical Q6H PRN Pain (do not apply after bathing prior to surgery) lidocaine 5 % topical patch 1 patch topical UD PRN Pain (do not apply after bathing prior to surgery) ASK your prescriber and surgeon apixaban 5 mg tablet (Eliquis) 5 mg PO BID DO NOT take the morning of surgery ascorbic acid (vitamin C) 100 mg tablet (Vitamin C) 100 mg PO QAM cholecalciferol (vitamin D3) 100 mcg (4,000 unit) capsule 5,000 mcg PO QAM hydrochlorothiazide 25 mg tablet 25 mg PO QAM dicyclomine 20 mg tablet 20 mg PO TID PRN "stomach problems" Take morning of surgery With a small sip of water, OTHERWISE NOTHING TO EAT OR DRINK AFTER MIDNIGHT: sertraline 100 mg tablet 100 mg PO QAM amlodipine 10 mg tablet 10 mg PO QAM atorvastatin 20 mg tablet 20 mg PO QAM buspirone 10 mg tablet 10 mg PO QAM PRN Anxiety baclofen 10 mg tablet 10 mg PO BID hydrocodone 5 mg-acetaminophen 325 mg tablet 1 tab PO TID PRN pain acetaminophen 650 mg tablet 650 mg PO Q6H PRN Pain gabapentin 600 mg tablet 600 mg PO TID Take evening before surgery baclofen 10 mg tablet 10 mg PO BID hydrocodone 5 mg-acetaminophen 325 mg tablet 1 tab PO TID PRN pain acetaminophen 650 mg tablet 650 mg PO Q6H PRN Pain gabapentin 600 mg tablet 600 mg PO TID mirabegron 50 mg tablet,extended release 24 hr (Myrbetriq) 50 mg PO HS doxazosin 8 mg tablet 8 mg PO HS sertraline 50 mg tablet 50 mg PO HS dicyclomine 20 mg tablet 20 mg PO TID PRN "stomach problems" Other Notes If you have any questions please call us at [phone] or [phone] or [phone] or [phone]
--- NOTE | 2024-02-18 15:12 | Anesthesiology Consultation ---
Date of Service February 18, 2024 Assessment & Plan (1) Encounter for pre-operative examination: - Infectious disease screening: Per assessment on 02/18/24: No known recent infectious disease contacts or current infectious disease symptoms. - Eliquis instructions: Per surgeon/prescriber Chart Review Chart Review: Acceptable Risk for Surgery and Patient seen in Pre Admission Testing Teaching & Discussion Pre-Anesthesia Teaching/Discussion Notes: Instructed NPO after midnight before surgery,except medications with 15 cc of water. Medication instructions provided according to the PAT guidelines. History Surgery Operation Date: 03/09/24 07:15 Proposed Procedures p L2-L3 Lateral Lumbar Interbody Fusion with Interbody Cage, L3-L4, L4-L5 Removal of Instrumentation, L2-L3 Lumbar Fusion with Posterior Instrumentation and Revision Decompression, with Spinal Cord Monitoring - Agus Talavera MD Height/Weight Height: 5 ft 8 in Weight: 104.9 kg Allergies Allergy/AdvReac Type Severity Reaction Status Date / Time lisinopril AdvReac Mild Cough Verified 02/18/24 14:39 Medications Home Medications Medication Instructions Recorded Confirmed Last Taken ascorbic acid (vitamin C) 100 mg 100 mg PO QAM 11/22/20 02/04/24 01/24/22 05:30 tablet (Vitamin C) cholecalciferol (vitamin D3) 100 5,000 mcg PO QAM 11/22/20 02/04/24 01/24/22 05:30 mcg (4,000 unit) capsule diclofenac sodium 1 % topical gel 2 g topical Q6H PRN Pain 11/22/20 02/04/24 4 Days Ago ~01/21/22 buspirone 10 mg tablet 10 mg PO QAM PRN Anxiety 12/05/20 02/04/24 1 Month Ago ~12/25/21 acetaminophen 650 mg tablet 650 mg PO Q6H PRN Pain 12/24/21 02/04/24 01/24/22 18:00 lidocaine 5 % topical patch 1 patch topical UD PRN Pain 12/24/21 02/04/24 1 Week Ago ~01/18/22 dicyclomine 20 mg tablet 20 mg PO TID PRN "stomach 01/28/22 02/04/24 Unknown problems" #30 tabs amlodipine 10 mg tablet 10 mg PO QAM #90 tabs 03/06/23 02/04/24 06/25/23 05:00 atorvastatin 20 mg tablet 20 mg PO QAM #90 tabs 04/08/23 02/04/24 06/25/23 05:00 doxazosin 8 mg tablet 8 mg PO HS 06/18/23 02/04/24 Unknown apixaban 5 mg tablet (Eliquis) 5 mg PO BID #180 tabs 07/17/23 02/04/24 Unknown hydrocodone 5 mg-acetaminophen 325 1 tab PO TID PRN pain #60 tabs 07/28/23 02/04/24 Unknown mg tablet mirabegron 50 mg tablet,extended 50 mg PO HS #90 tabs 09/01/23 02/04/24 Unknown release 24 hr (Myrbetriq) gabapentin 600 mg tablet 600 mg PO TID #270 tabs 10/02/23 02/04/24 Unknown hydrochlorothiazide 25 mg tablet 25 mg PO QAM #90 tabs 12/26/23 02/04/24 Unknown baclofen 10 mg tablet 10 mg PO BID #60 tabs 12/29/23 02/04/24 Unknown sertraline 100 mg tablet 100 mg PO QAM #90 tabs 01/27/24 02/04/24 Unknown sertraline 50 mg tablet 50 mg PO HS #90 tabs 01/27/24 02/04/24 Unknown hydrocodone 5 mg-acetaminophen 325 1 tab PO BID PRN pain #30 tabs 02/17/24 02/17/24 Unknown mg tablet Past Medical History Medical History Anxiety BPH (benign prostatic hyperplasia) Cancer Non-hodgkins lymphoma Dx 1997, s/p chemo/XRT No current/recent issues Carpal tunnel syndrome on both sides Cervical radiculopathy Depression DVT (deep venous thrombosis) RLE (2019), Per 2021 vascular notes, patient had subsequent imaging that showed superficial phlebitis but no DVT. More recent 2021 imaging with no evidence of superficial thrombophlebitis or DVT. Okay to discontinue anticoagulation from vascular perspective 2021 with recommendation to initiate ASA 81mg if so + continuing compression therapy/stockings. Decision by patient to remain on AC- currently taking Eliquis. GERD (gastroesophageal reflux disease) History of COVID-19 04/2023 > symptoms resolved Hx of varicose veins BLLE Hyperlipidemia Hypertension Lumbar facet joint syndrome Gets ablations through pain management Lumbar post-laminectomy syndrome Lumbar radiculopathy Lumbar stenosis with neurogenic claudication Myofascial pain Osteoarthritis Peripheral edema Prediabetes Per records, patient unaware A1C 02/18/24 5.7% Sleep apnea CPAP (compliant) Urinary frequency Improved Exercise / Class Metabolic Activity III < 4 Walking/Shop/Light housework (one FS: No CP, occasional mild SOB) Past Family History Family History Brother Leukemia Hypertension Mother Hypertension Denies family history of Ovarian cancer Prostate cancer Diabetes Myocardial infarction Breast cancer Colorectal cancer Past Surgical History Surgical History Fusion of spine lumbar, 2014 H/O cervical spine surgery C3-4, C5-6 ACDF 2018 H/O knee surgery left knee meniscus repair H/O tenotomy Right foot percutaneous tentotomy, 06/2023 History of esophagogastroduodenoscopy (EGD) History of herniorrhaphy abdomen History of right knee joint replacement 12/2021; spinal, regional without issue History of surgery RLE, artery laceration repair Hx of colonoscopy Hx of tonsillectomy [place] teeth extracted Past Anesthesia History No Hx of Anesthesia Complications and No Family Hx of Anesthesia Complications History of PONV No Hx of PONV and No Hx of Motion Sickness Social History Smoking Status: Former smoker Do You Dip or Chew Tobacco: No (Quit many years ago; advised) Smoking End Date: Quit many years ago Hx Alcohol Use: Yes Alcohol type: beer, wine and hard liquor alcohol intake frequency: a few times a week Alcohol Intake Frequency Comment: maybe 2x per week Hx Substance Use: No substance use type: does not use Review of Systems Patient denies chest pain, shortness of breath, fever, chills, cough, wheezing. Physical Exam Vital Signs BP 136/70 P 79 TEMP 98.3 SP02 95%RA RESP 16 Physical Full cervical extension range of motion. Full TMJ range of motion. TMD > 3.5 finger breaths Mallampati Score II Dentition: missing molars, + caps/crowns (some of these teeth since removed, patient unsure of details) Lungs: clear throughout to auscultation Cardiac: regular rate and rhythm, no murmurs noted Spine: normal Carotid arteries: negative bruit Extremities: no LE edema Lab Results Anesthesia Preop Results Results Anesthesia Widget: WBC 6.36 K/ul (4.8-10.8) 02/18/24 Hgb 13.5 g/dl (14.0-18.0) L 02/18/24 Hct 38.1 % (42.0-52.0) L 02/18/24 Plt 211 K/uL (130-400) 02/18/24 Na 138 mmol/L (136-145) 02/18/24 K 3.7 mmol/L (3.5-5.1) 02/18/24 Cl 102 mmol/L (98-107) 02/18/24 CO2 30 mmol/L (21-32) 02/18/24 BUN 22 mg/dl (6-23) 02/18/24 Creat 1.04 mg/dl (0.6-1.4) 02/18/24 Glucose Level 105 mg/dl (70-99(Fasting)) H 02/18/24 PT 10.3 Seconds (9.0-12.0) 02/18/24 PTT 24 Seconds (21-31) 02/18/24 INR 0.9 (0.9-1.1) 02/18/24 HA1c 5.7 % (4.5-5.6) H 02/18/24 Blood Type A Positive 02/18/24 Antibody Screen NEGATIVE 02/18/24 Testing Electrocardiogram Date: 02/18/24 NSR at 69bpm. "Normal ECG" Chest X-Ray Date: 02/18/24 FINDINGS: Lung volumes are normal. Lungs are clear. There is no pneumothorax or pleural effusion. Cardiac size is normal. Mediastinal contours are normal. There is no evidence for pulmonary edema. Postoperative findings within the spine are incidentally noted. IMPRESSION: No acute cardiopulmonary findings. No change in appearance of the chest.
[2024-03-09] MEDS ORDERED: ONDANSETRON INJ 2 MG/ML 2 ML VIAL IV PRN ×3 (09:22→19:39)
[2024-03-09] MEDS ORDERED: ePHEDrine sulfate 50 MG/ML AMP IV PRN ×2 (09:22→19:39)
[2024-03-09] MEDS ORDERED: ATROPINE SULFATE 0.1 MG/ML 10ML SYR IV PRN ×2 (09:22→19:39)
[2024-03-09] MEDS ORDERED: HYDROmorphone INJ 1 MG/ML SYRINGE IV PRN ×2 (09:22→19:39)
[2024-03-09] MEDS ORDERED: PROMETHAZINE HCL 6.25 MG in SODIUM CHLORIDE 0.9% 50 ML IV PRN (09:22)
[2024-03-09] MEDS ORDERED: fentaNYL citrate PF 100 MCG/2 ML VIAL IV PRN (09:22)
[2024-03-09] MEDS ORDERED: fentaNYL citrate PF 100 MCG/2 ML VIAL ONE (09:29)
[2024-03-09] MEDS ORDERED: DEXAMETHASONE SOD INJ 4 MG/ML VIAL ONE (09:29)
[2024-03-09] MEDS ORDERED: ONDANSETRON INJ 2 MG/ML 2 ML VIAL ONE (09:29)
[2024-03-09] MEDS ORDERED: PROPOFOL IV EMULSION 10 MG/ML 100 ML VIAL IV ONE ×4 (09:29→17:31)
[2024-03-09] MEDS ORDERED: MIDAZOLAM HCL 1 MG/ML 2ML VIAL ONE ×2 (09:29→11:14)
[2024-03-09] MEDS ORDERED: PROPOFOL IV EMULSION 10 MG/ML 20 ML VIAL IV ONE (09:29)
[2024-03-09] MEDS ORDERED: ROCURONIUM BROMIDE 10 MG/ML 5 ML VIAL IV ONE (09:29)
[2024-03-09] MEDS: GABAPENTIN 600 MG DOSE PO SCH (09:45)
[2024-03-09] MEDS: LR 60ML/HR IV SCH (09:45)
[2024-03-09] MEDS: LR 15ML/HR IV SCH (10:02)
[2024-03-09] MEDS ORDERED: REMIFENTANIL HCL 1 MG VIAL IV ONE (10:50)
--- NOTE | 2024-03-09 11:02 | History & Physical Bridge Note ---
Date of Service March 09, 2024 History & Physical Bridge Note I have examined the patient, reviewed the History & Physical and in the interval since the performance of the History & Physical I have noted the following changes of clinical significance: no changes noted Procedure will be L2-3 lateral arthrodesis with placement of cage, posterior instrumentation and fusion, removal of instrumentation L3-L5.
[2024-03-09] MEDS: TRANEXAMIC ACID / 0.7% NACL 1000MG/100ML BAG IV ONE ×2 (12:00→15:39)
[2024-03-09] MEDS: ceFAZolin 2000MG 2,000 MG/15 ML SYR IV SCH (12:05)
[2024-03-09] MEDS: VANCOMYCIN HCL 1000MG/20ML VIAL ONE (12:42)
[2024-03-09] MEDS: GELATIN SPONGE 12-7MM ONE ×2 (12:43→16:43)
[2024-03-09] MEDS: BUPIVACAINE 0.5 % 5 MG/1 ML MPF 30ML VIAL ONE (12:43)
[2024-03-09] MEDS: THROMBIN 5000 UNITS KIT ONE (12:43)
[2024-03-09] MEDS ORDERED: PHENYLEPHRINE 100MCG/ML 10ML SYR IV ONE (13:11)
[2024-03-09] MEDS ORDERED: ePHEDrine sulfate 50 MG/5 ML SYR ONE (13:11)
[2024-03-09] MEDS: ceFAZolin 2000MG 2,000 MG/15 ML SYR IV ONE (16:30)
[2024-03-09] MEDS ORDERED: ceFAZolin 330 MG/ML 1 GM VIAL ONE (16:35)
[2024-03-09] MEDS ORDERED: PHENYLEPHRINE HCL 10 MG/ML VIAL ONE (17:20)
[2024-03-09] MEDS ORDERED: HYDROmorphone INJ 2 MG/ML SYR/VIAL ONE (18:10)
[2024-03-09] MEDS: BUPIVACAINE/EPINEPHRINE 0.5% MPF 1:200,000 30 ML VIAL ONE (18:11)
[2024-03-09] MEDS: FLOSEAL HEMOSTATIC MATRIX 5ML TOP ONE (18:11)
[2024-03-09] MEDS ORDERED: SUGAMMADEX SODIUM 200 MG/2 ML VIAL IV ONE (19:16)
[2024-03-09] MEDS ORDERED: NALOXONE HCL 0.4 MG/1 ML VIAL/CARP IV PRN (19:38)
[2024-03-09] MEDS ORDERED: LORazepam 2 MG/1 ML VIAL IV PRN (19:38)
[2024-03-09] MEDS ORDERED: SOD PHOSPHATE/SOD BIPHOSPHATE ENEMA 132 ML BTL PR PRN (19:38)
[2024-03-09] MEDS ORDERED: DO NOT ADMINISTER PNEUMOCOCCAL VACCINE PRN (19:38)
[2024-03-09] MEDS ORDERED: ONDANSETRON 4 MG OD TAB PO PRN (19:38)
[2024-03-09] MEDS ORDERED: METOCLOPRAMIDE HCL INJ 5 MG/ML 2 ML VIAL IV PRN (19:38)
[2024-03-09] MEDS ORDERED: ACETAMINOPHEN 500 MG TAB PO PRN (19:38)
[2024-03-09] MEDS ORDERED: ACETAMINOPHEN 1,000 MG/100 ML VIAL IV PRN (19:38)
[2024-03-09] MEDS ORDERED: DO NOT ADMINISTER FLU VACCINE PRN (19:38)
[2024-03-09] MEDS ORDERED: MAGNESIUM HYDROXIDE SUSP 30 ML UDC PO PRN (19:38)
[2024-03-09] MEDS ORDERED: FAMOTIDINE 20 MG TAB PO PRN (19:38)
[2024-03-09] MEDS ORDERED: ALUMINUM/MAGNESIUM SUSP 30 ML UDC PO PRN (19:38)
[2024-03-09] MEDS ORDERED: PROMETHAZINE 12.5 MG/50.5 ML BAG IV PRN (19:38)
[2024-03-09] MEDS ORDERED: LORazepam 0.5 MG TAB PO PRN (19:38)
[2024-03-09] MEDS ORDERED: bisacodyL 10 MG SUPP PR PRN (19:38)
[2024-03-09] MEDS ORDERED: diphenhydrAMINE Capsule 25 MG CAP PO PRN (19:38)
[2024-03-09] MEDS ORDERED: hydrOXYzine HCl 25 MG TAB PO PRN (19:38)
--- NOTE | 2024-03-09 19:38 | Post Operative Brief Note ---
PG Immediate Post Op with CF Date of Surgery March 09, 2024 Pre & Post Diagnosis Operation Date: 03/09/24 10:35 Pre-Op Diagnosis: Lumbar radiculopathy Lumbar stenosis with neurogenic claudication Low back pain radiating down both legs Post-Op Diagnosis: Lumbar radiculopathy Lumbar stenosis with neurogenic claudication Low back pain radiating down both legs I identified the patient and participated in the time-out.: Yes Procedure Operation Date: 03/09/24 10:35 Actual Procedures p L2-L3 Lateral Lumbar Interbody Fusion with Interbody Cage, L3-L4, L4-L5 Removal of Instrumentation, L2-L3 Lumbar Fusion with Posterior Instrumentation and Revision Decompression, Spinal Cord Monitoring(Not Applicable) - Agus Talavera MD Surgeon Agus Talavera MD Probation And Parole Officer none Estimated Blood Loss 1,500 Findings Consistent with Post-Op Diagnosis Specimens Specimen Description: No specimen per surgeon Drains Ward Catheter (16f inserted prior to procedure start by Emre Reese RN; 10cc in balloon; clear, yellow urine returned)
[2024-03-09 19:41] LABS: Hematocrit (blood only) 35.7 % (42.0-52.0); Hemoglobin 12.8 g/dl (14.0-18.0); Mean Corpuscular Hemoglobin 31.8 pg (25.0-34.0); Mean Corpuscular Hgb Conc 35.9 g/dL (32.0-36.0); Mean Corpuscular Volume 88.6 fL (80.0-100.0); Mean Platelet Volume 9.3 fL (9.4-12.4); Platelet Count 206 K/uL (130-400); RDW Coefficient of Variation 13.4 % (11.5-14.5); RDW Standard Deviation 43.4 fL (36.4-46.3); Red Blood Count 4.03 M/uL (4.70-6.10); White Blood Count 6.66 K/ul (4.8-10.8)
[2024-03-09] MEDS: fentaNYL citrate PF 100 MCG/2 ML VIAL IV PRN (19:44)
[2024-03-09] MEDS ORDERED: busPIRone 5 MG TAB PO PRN (20:33)
[2024-03-09] MEDS: fentaNYL citrate PF 100 MCG/2 ML VIAL ONE (20:38)
[2024-03-09] MEDS: LACTATED RINGER'S 1,000 ML IV SCH (21:04)
[2024-03-09] MEDS: oxyCODONE/ACETAMINOPHEN 5mg/325mg TAB PO PRN (21:04)
--- NOTE | 2024-03-09 22:20 | Anesthesiology Progress Note ---
Date of Service March 09, 2024 Anesthesia Post Procedure Vital Signs Vital Signs: Temp Pulse Pulse Resp BP Pulse Ox O2 Del Method 03/09/24 21:20 97.5 F L 95 H 18 131/78 95 Nasal Cannula 03/09/24 20:55 97.7 F 95 H 16 131/80 94 Nasal Cannula 03/09/24 20:39 97.9 F 90 15 135/80 95 Nasal Cannula 03/09/24 20:00 97.5 F L 91 H 13 128/81 96 Nasal Cannula 03/09/24 19:50 84 12 109/71 94 Nasal Cannula 03/09/24 19:40 77 12 119/77 94 Oxymask 03/09/24 19:30 83 12 111/71 94 Oxymask 03/09/24 19:20 82 14 123/79 96 Oxymask 03/09/24 19:10 74 16 131/81 96 Oxymask 03/09/24 19:00 79 16 104/77 94 Oxymask 03/09/24 18:54 96.8 F L 84 16 112/81 96 Oxymask 03/09/24 09:31 97.5 F L 65 18 123/85 97 Room Air O2 Flow Rate 03/09/24 21:20 2.0 03/09/24 20:55 2 03/09/24 20:39 2 03/09/24 20:00 4 03/09/24 19:50 4 03/09/24 19:40 8 03/09/24 19:30 8 03/09/24 19:20 8 03/09/24 19:10 8 03/09/24 19:00 8 03/09/24 18:54 8 03/09/24 09:31 Pain Intensity Lower Back: Pain Intensity: 6 Transfer of Care Handoff Completed per policy Notes Mental Status: alert / awake / arousable and participated in evaluation Patient Amnestic to Procedure: Yes Nausea / Vomiting: adequately controlled Pain: adequately controlled Airway Patency, RR, SpO2: stable & adequate BP & HR: stable & adequate Hydration State: stable & adequate Anesthetic Complications: no major complications apparent and Pt Satisfied with anesthetic care
[2024-03-09] MEDS: DOCUSATE SODIUM/SENNA 50/8.6MG TAB PO SCH (22:28)
[2024-03-09] MEDS: HYDROmorphone INJ 0.5 MG/0.5 ML SYR IV PRN (22:28)
[2024-03-09] MEDS: GABAPENTIN 600 MG TAB PO SCH (22:29)
[2024-03-09] MEDS: BACLOFEN 10 MG TAB PO SCH (22:30)
[2024-03-09] MEDS: DOXAZosin MESYLATE 4 MG TAB PO SCH (22:30)
--- NOTE | 2024-03-09 23:31 | Hospitalist Consultation ---
Date of Consultation March 09, 2024 Assessment & Plan (1) Lumbar stenosis with neurogenic claudication: (2) Hyperlipidemia: (3) Hypertension: (4) Anxiety: (5) GERD (gastroesophageal reflux disease): (6) BPH (benign prostatic hyperplasia): (7) DVT (deep venous thrombosis): Plan Wesley is a 64M w/ PMH of BPH, insomnia, lumbar spinal stenosis w/ radiculopathy and neurogenic claudication, HTN, HLD, anxiety, depression, and GERD who presented for planned lumbar spinal surgery w/ Dr. Talavera and is now POD #0. S/p Lumbar Spinal Surgery - Pain & post-operative management per Ortho-Spine Surgery BPH/Overactive Bladder Post-op Urinary Retention - Continue Myrbetriq and Doxazosin as ordered - Patient has not yet urinated post-op Continue to follow w/ PVR Will replace Ward short term if PVR repeatedly elevated HTN - Stable - Continue home antihypertensives as ordered HLD - Stable - Continue Atorvastatin and HCTZ as ordered Anxiety/Depression/Insomnia - Continue Sertraline 100 mg QAM and 50 mg QPM as ordered - Continue Buspirone 10 mg QAM PRN as ordered - Additional Ativan PRN for acute anxiety GERD - Stable, continue PPI as ordered Hx of DVT - Diagnosed in 2018 per patient (2019 per PMH) - Has been on daily anticoagulation w/ Eliquis since diagnosis - Held for surgery, consider restarting 48+ hours post-op - SCDs intact Diet: Liquid, ADAT Code: Full DVT: SCDs, followed by [place] Dispo: Med/Surg pending PT/OT evals Supervising Physician Co-Signing Physician Notes Attending addendum: I have physically seen this patient, have supervised the medical residents activities, and agree with the H&P unless as otherwise noted. Assessment and Plan: Status post lumbar spine surgery- Seen postoperatively is medically stable Pain management and postoperative management per surgery Hypertension- Continue amlodipine with hold parameters Hold HCTZ postoperatively until laboratories reveal renal function is acceptable postoperatively CBC with differential and BMP in the a.m. History of DVT- Eliquis held for surgery Resume when acceptable with surgery BPH with LUTS/overactive bladder- Continuing Myrbetriq and doxazosin as ordered PVRs as needed Ward catheter is noted Anxiety/depression/insomnia- Continue sertraline, and buspirone Ativan as needed for acute anxiety Remaining orders and notations as noted History of Present Illness Reason for Consultation: Chronic Condition Mgmt Upcoming Spinal Surgery Requesting Physician: Agus Talavera MD Attending Physician: Ramiro Flores MD History of Present Illness Wesley is a 64M w/ PMH of BPH, insomnia, lumbar spinal stenosis w/ radiculopathy and neurogenic claudication, HTN, HLD, anxiety, depression, and GERD who presented for planned lumbar spinal surgery w/ Dr. Talavera. Resting comfortably in bed post-operatively. Pain controlled. No acute concerns. Ward removed in PACU, not yet urinated. Passing flatus. Allergies Allergy/AdvReac Type Severity Reaction Status Date / Time lisinopril AdvReac Mild Cough Verified 03/09/24 09:14 Home Medications Medication Instructions Recorded Confirmed Type ascorbic acid (vitamin C) 100 mg 100 mg PO QAM 11/22/20 03/09/24 History tablet (Vitamin C) cholecalciferol (vitamin D3) 100 5,000 mcg PO QAM 11/22/20 03/09/24 History mcg (4,000 unit) capsule diclofenac sodium 1 % topical gel 2 g topical Q6H PRN Pain 11/22/20 03/09/24 History buspirone 10 mg tablet 10 mg PO QAM PRN Anxiety 12/05/20 03/09/24 History acetaminophen 650 mg tablet 650 mg PO Q6H PRN Pain 12/24/21 03/09/24 History lidocaine 5 % topical patch 1 patch topical UD PRN Pain 12/24/21 03/09/24 History dicyclomine 20 mg tablet 20 mg PO TID PRN "stomach 01/28/22 03/09/24 Rx problems" #30 tabs amlodipine 10 mg tablet 10 mg PO QAM #90 tabs 03/06/23 03/09/24 Rx atorvastatin 20 mg tablet 20 mg PO QAM #90 tabs 04/08/23 03/09/24 Rx doxazosin 8 mg tablet (Cardura) 8 mg PO HS 06/18/23 03/09/24 History apixaban 5 mg tablet (Eliquis) 5 mg PO BID #180 tabs 07/17/23 03/09/24 Rx hydrocodone 5 mg-acetaminophen 325 1 tab PO TID PRN pain #60 tabs 07/28/23 03/09/24 Rx mg tablet mirabegron 50 mg tablet,extended 50 mg PO HS #90 tabs 09/01/23 03/09/24 Rx release 24 hr (Myrbetriq) gabapentin 600 mg tablet 600 mg PO TID #270 tabs 10/02/23 03/09/24 Rx hydrochlorothiazide 25 mg tablet 25 mg PO QAM #90 tabs 12/26/23 03/09/24 Rx baclofen 10 mg tablet 10 mg PO BID #60 tabs 12/29/23 03/09/24 Rx sertraline 100 mg tablet 100 mg PO QAM #90 tabs 01/27/24 03/09/24 Rx sertraline 50 mg tablet 50 mg PO HS #90 tabs 01/27/24 03/09/24 Rx hydrocodone 5 mg-acetaminophen 325 1 tab PO BID PRN pain #30 tabs 02/17/24 03/09/24 Rx mg tablet oxycodone 10 mg tablet 10 mg PO Q8H PRN pain #20 tabs 03/10/24 Rx Patient History Medical History Anxiety BPH (benign prostatic hyperplasia) Cancer Non-hodgkins lymphoma Dx 1997, s/p chemo/XRT No current/recent issues Carpal tunnel syndrome on both sides Cervical radiculopathy Depression DVT (deep venous thrombosis) RLE (2019), Per 2021 vascular notes, patient had subsequent imaging that showed superficial phlebitis but no DVT. More recent 2021 imaging with no evidence of superficial thrombophlebitis or DVT. Okay to discontinue anticoagulation from vascular perspective 2021 with recommendation to initiate ASA 81mg if so + continuing compression therapy/stockings. Decision by patient to remain on AC- currently taking Leana giorgio. GERD (gastroesophageal reflux disease) History of COVID-19 04/2023 > symptoms resolved Hx of varicose veins BLLE Hyperlipidemia Hypertension Lumbar facet joint syndrome Gets ablations through pain management Lumbar post-laminectomy syndrome Lumbar radiculopathy Lumbar stenosis with neurogenic claudication Myofascial pain Osteoarthritis Peripheral edema Prediabetes Per records, patient unaware A1C 02/18/24 5.7% Sleep apnea CPAP (compliant) Urinary frequency Improved Surgical History Fusion of spine lumbar, 2015 H/O cervical spine surgery C3-4, C5-6 ACDF 2018 H/O knee surgery left knee meniscus repair H/O tenotomy Right foot percutaneous tentotomy, 06/2023 History of esophagogastroduodenoscopy (EGD) History of herniorrhaphy abdomen History of right knee joint replacement 12/2021; spinal, regional without issue History of surgery RLE, artery laceration repair Hx of colonoscopy Hx of tonsillectomy [place] teeth extracted Family History Brother Leukemia Hypertension Mother Hypertension Denies family history of Ovarian cancer Prostate cancer Diabetes Myocardial infarction Breast cancer Colorectal cancer Social History Smoking Status: Former smoker Smoking End Date: Quit many years ago; Second Hand Exposure: Yes (hx as child); Do You Dip or Chew Tobacco: No (Quit many years ago; advised); Tobacco Cessation Education Requested by Patient: No Hx Alcohol Use: Yes Alcohol type: beer, wine and hard liquor Hx Substance Use: No Preferred Language: Mohawk Communication Ability: Effective Visual Impairment: No Limitations Outsole Flexer Required: No Beliefs That Will Affect Care: None marital status: Current Living Situation: Spouse current occupational status: employed 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 How many Children do You have: 3 Other Information That Helps Us Care for You: No Feels Safe at Home: Yes Safety Concerns: Feels Safe At This Time Childhood Exposure to Second-Hand Smoke: Yes Diet: regular caffeine: Yes Dental Care, Regularly: Yes Physical Activity Frequency: Daily Seatbelt Use: sometimes Sunscreen Use: Yes Assistive Devices: CPAP Physical Exam Physical Exam: Gen: NAD, alert, pleasant HEENT: Supple, no LAD, no thyromegaly, no JVD Resp:Non-labored, no wheezing/rhonchi/rales, CTAB CV:RRR, normal S1/S2, no M/R/G Abd: Soft, non-distended, no TTP, normoactive bowels, no masses Extr: 2+ dp bilaterally, no edema Back: Surgical bandage intact w/o blood or surrounding erythema Skin: No rashes lesions or erythema Results & Data Results & Data Vital Signs (Past 12 Hours) Vital Signs Temp Pulse Pulse Resp BP Pulse Ox O2 Del Method 03/09/24 23:19 36.6 C 100 H 16 131/79 92 Nasal Cannula 03/09/24 22:25 36.6 C 82 16 126/72 94 Nasal Cannula 03/09/24 21:20 36.4 C L 95 H 18 131/78 95 Nasal Cannula 03/09/24 20:55 36.5 C 95 H 16 131/80 94 Nasal Cannula 03/09/24 20:39 36.6 C 90 15 135/80 95 Nasal Cannula 03/09/24 20:00 36.4 C L 91 H 13 128/81 96 Nasal Cannula 03/09/24 19:50 84 12 109/71 94 Nasal Cannula 03/09/24 19:40 77 12 119/77 94 Oxymask 03/09/24 19:30 83 12 111/71 94 Oxymask 03/09/24 19:20 82 14 123/79 96 Oxymask 03/09/24 19:10 74 16 131/81 96 Oxymask 03/09/24 19:00 79 16 104/77 94 Oxymask 03/09/24 18:54 36.0 C L 84 16 112/81 96 Oxymask O2 Flow Rate 03/09/24 23:19 2 03/09/24 22:25 2 03/09/24 21:20 2.0 03/09/24 20:55 2 03/09/24 20:39 2 03/09/24 20:00 4 03/09/24 19:50 4 03/09/24 19:40 8 03/09/24 19:30 8 03/09/24 19:20 8 03/09/24 19:10 8 03/09/24 19:00 8 03/09/24 18:54 8 Resident Activity Tracking Resident Involvement: Resident Care Provided Care Provided: Adult [facility] Medicine (2) Hyperlipidemia Hyperlipidemia type: mixed hyperlipidemia Qualified Code(s): E78.2 - Mixed hyperlipidemia (3) Hypertension Hypertension type: primary hypertension Qualified Code(s): I10 - Essential (primary) hypertension (6) BPH (benign prostatic hyperplasia) Lower urinary tract symptom detail: nocturia Lower urinary tract symptom presence: symptoms present Qualified Code(s): N40.1 - Benign prostatic hyperplasia with lower urinary tract symptoms; R35.1 - Nocturia
[2024-03-10] MEDS: ceFAZolin 2000MG 2,000 MG/15 ML SYR IV SCH (01:50)
[2024-03-10] MEDS: POLYETHYLENE (MIRALAX) 17 GM PACK PO SCH (05:19)
[2024-03-10 07:34] VITALS: RESP 18
[2024-03-10] MEDS: hydroCHLOROthiazide 25 MG TAB PO SCH (09:02)
[2024-03-10] MEDS: amLODIPine BESYLATE 5 MG TAB PO SCH (09:02)
[2024-03-10] MEDS: SERTRALINE HCL 100 MG TABLET PO SCH (09:02)
--- NOTE | 2024-03-10 09:35 | Fluoroscopy Report ---
FL lumbar spine 2-3V CLINICAL HISTORY: L2-3 INTERBODY...Chronic low back pain COMPARISON STUDY: MRI 11/12/2023 FLUOROSCOPY TIME: 251.7 seconds FLUOROSCOPY IMAGES: 12 EXPOSURE DOSE: 192.0 mGy FINDINGS: The submitted images demonstrate partially imaged fusion hardware with discectomy changes. Exact numbering is not definitive based on magnification. The level with discectomy and interbody fus ion on today's study is labeled L2-L3. The imaged hardware appears intact. Overlying skin dina. Re tractor devices are present. No definite radiopaque retained surgical sponge identified. Note that th e images were submitted following completion of the surgery. IMPRESSION: Fluoroscopic assistance as above. ACT 112: Negative or not required by law. Electronically signed by: Gurjit Porter M.D. 03/10/2024 9:34 AM
[2024-03-10 15:15] VITALS: BP 111/67; PULSE 93; TEMP 98.2; O2SAT 91
--- NOTE | 2024-03-10 17:03 | Hospitalist Progress Note ---
Date of Service March 10, 2024 Assessment & Plan (1) Lumbar stenosis with neurogenic claudication: Plan: 03/09/24 L2-L3 Lateral Lumbar Interbody Fusion with Interbody Cage, L2-L3 Lumbar Fusion with Posterior Instrumentation and Revision Decompression, Dr Talavera home with prn oxycodone for follow up (2) Hypertension: Plan: Amlodipine, doxazosin, hctz (3) Anxiety: Plan: - Continue Sertraline 100 mg QAM and 50 mg QPM as ordered - Continue Buspirone 10 mg QAM PRN as ordered - Additional Ativan PRN for acute anxiety (4) BPH (benign prostatic hyperplasia): Plan: - Continue Myrbetriq and Doxazosin as ordered (5) DVT (deep venous thrombosis): Plan: hold eliquis and restart in a few days Plan Hx of DVT - Diagnosed in 2018 per patient (2020 per [facility]) - Has been on daily anticoagulation w/ Eliquis since diagnosis - Held for surgery, consider restarting friday03/12/24 if bleeding has stopped if not to contact Dr Talavera Admission and Anticipated Discharge Date Admission Date: March 09, 2024 Subjective pt was seen walking in room, wound has soaked thru dressing, serosanguineous I spoke to Dr Talavera and he is expecting this wound to be with outpt, as long as family can help wiht dressing he is comfortable with d/c Physical Exam Physical Exam: awake and alert, cardiac is regular, lungs are clear wound is intact some oozing inferior margin Results & Data Results & Data Vital Signs (Past 12 Hours) Vital Signs Temp Pulse Resp BP BP Pulse Ox O2 Del Method 03/10/24 15:14 98.2 F 93 H 18 111/67 91 Room Air 03/10/24 11:40 97.9 F 90 18 120/71 95 Room Air 03/10/24 09:05 Room Air 03/10/24 07:33 98.1 F 86 18 118/68 95 Nasal Cannula O2 Flow Rate 03/10/24 15:14 03/10/24 11:40 03/10/24 09:05 03/10/24 07:33 2 Laboratory Results review repeat hgb review cbc PG Care Time/CCT Total # of Minutes Spent Total Time Spent with Patient: Total time spent is greater than 50% in coordination of care (as documented) at patient's floor/unit and/or counseling patient: Coding Level of Care Code 86798 SUB INP/OBS CARE Diagnoses Lumbar stenosis with neurogenic claudication M48.062 Primary hypertension I10 Hypertension type: primary hypertension Anxiety F41.9 Benign prostatic hyperplasia with nocturia N40.1; R35.1 Lower urinary tract symptom detail: nocturia Lower urinary tract symptom presence: symptoms present DVT (deep venous thrombosis) I82.409 (2) Hypertension Hypertension type: primary hypertension Qualified Code(s): I10 - Essential (primary) hypertension (4) BPH (benign prostatic hyperplasia) Lower urinary tract symptom detail: nocturia Lower urinary tract symptom presence: symptoms present Qualified Code(s): N40.1 - Benign prostatic hyperplasia with lower urinary tract symptoms; R35.1 - Nocturia
--- NOTE | 2024-03-10 17:16 | Operative Report ---
PG Post Operative Report Pre & Post Diagnosis Operation Date: 03/09/24 10:35 Pre-Op Diagnosis: Lumbar radiculopathy Lumbar stenosis with neurogenic claudication Low back pain radiating down both legs Post-Op Diagnosis: Lumbar radiculopathy Lumbar stenosis with neurogenic claudication Low back pain radiating down both legs I identified the patient and participated in the time-out.: Yes Procedure Operation Date: 03/09/24 10:35 Actual Procedures p L2-L3 Lateral Lumbar Interbody Fusion with Interbody Cage, L2-L3 Lumbar Fusion with Posterior Instrumentation and Revision Decompression, Spinal Cord Monitoring(Not Applicable) - Agus Talavera MD s L3-L4, L4-L5 Removal of Instrumentation,(Not Applicable) - Agus Talavera MD Surgeon Agus Talavera MD Media Production Operator none Estimated Blood Loss 1,500 Findings Consistent with Post-Op Diagnosis Specimens None Description of Procedure 1. Left L2-3 lateral interbody arthrodesis. (72424) 2. Insertion of interbody cage, Nu[employer]asive modulus X LW 10 x 22 x 55 mm lordotic. (11066) 3. L2-3 posterior nonsegmental instrumentation, NuVasive reline. (66409) 4. L2-3 posterior arthrodesis. (76013) 5. Removal of posterior segmental instrumentation, L345. (58188) 6. Inspection of arthrodesis L3-4, L4-5. (11954) 7. Utilization of autograft from same operative site. (37472) Patient was taken the operating room after adequate anesthesia was carefully positioned right lateral decubitus left side up for a left-sided approach to the L2-3 level. After doing so, preprepped was performed followed by then securing the patient in standard fashion using fluoroscopic control, fluoroscopy was brought in I marked for the approximate location for the incision followed by prepping and draping. A lateral incision was made over the lumbar spine in the region of L2-3 and advanced down through the subcutaneous tissues where I was able to advance into the retroperitoneal region and advanced the initial dilator from the NuVasive set onto the lateral aspect of L2-3. Combination of fluoroscopy and monitoring was utilized to perform this task and once in a proper location the guidewire was then inserted. The additional dilators were then inserted, followed by the access apparatus and this was secured after checking it fluoroscopically and making slight adjustments. Once this was completed, direct visualization had already been performed and inspection with the probe, this was repeated at this time followed by then incising the annulus and moving into the disc base. It was degenerative in nature, there was limited disc material, number of instruments were utilized to remove the disc remaining along with the cartilage from the endplates. Once completed, dilators were then inserted and I selected size cage as noted. Fusion materials were applied within the cage, and this was then advanced under fluoroscopic control into the position at the L2-3 interspace which provided distraction of the interspace. Final images were obtained, I then removed the access apparatus upon removal no issues were noted, vancomycin powder had been placed. The operative site was closed using 0 and 2-0 Vicryl sutures followed by dina for the skin. Sterile dressing was applied, patient was then repositioned prone on the Jean frame followed by prep and drape after marking for the location of the incision using fluoroscopy. A longitudinal incision was made through the midline and advanced down to the operative area including the spinous processes more cephalad, and then out to the hardware on either side. Once I was able to expose the hardware on either side, there was abundance of bone material in around the hardware, I had to utilize a number of osteotomes to remove this and expose the hardware adequately. The setscrews were removed followed by then eventually removal of the rods, there was no evidence of upon inspection of pseudoarthrosis or either these 2 levels. From there I then removed the pedicle screws successfully. Fluoroscopy was brought in, I was then able to visualize the pedicles of L2 followed by using high-speed bur to make the start point followed by the gearshift probe into the L2 vertebral body. Once confirmed fluoroscopically and by monitoring, I followed this with insertion of tap followed by 6.5 millimeter screws from the NuVasive reline set, 55 mm in length and both levels of L2 and also L3, inserting new screws at L3. The position of the instrumentation was then confirmed fluoroscopically followed by insertion of the rods and then securing these in standard fashion. The fusion masses and locations were then decorticated followed by utilizing the bone obtained from around the hardware which had been morselized and placed in the operative region. Operative site had been irrigated previously, I then applied vancomycin powder, and closed the operative site in layers of 0 Vicryl sutures followed by 2-0 Vicryl sutures and dina for the skin. Sterile dressing was applied, the patient tolerated procedure well was taken recovery room in satisfactory condition. I attest to the content of the Intraoperative Record and any orders documented therein. Any exceptions are noted below.
[2024-03-10] MEDS ORDERED: SERTRALINE HCL 50 MG TABLET PO SCH (21:00)
--- NOTE | 2024-03-11 00:11 | Billing Data ---
Date of Service March 11, 2024 Coding Level of Care Code 67650 IN/OBS CONSULT LVL 3,45M
== END 2024-03-10 15:31 | disposition home or self-care (01) | DRG 455 ==
LOC: ASU 08:52 → 3N 19:38 → INTOOBSV 19:38